=== PATIENT | male | born 1950 | race Caucasian/White ===

== ENCOUNTER → 2016-09-14 | Outpatient (CLI) | payer MEDICARE, BC ==
--- NOTE | 2016-09-14 14:09 | CT ---
EXAM DESCRIPTION: Abdomen/Pelvis w/wo Contrast CLINICAL HISTORY: ABD PAIN COMPARISON: None Available TECHNIQUE: CT of the abdomen and Pelvis was performed with and without IV contrast. This exam was performed according to our departmental dose-optimization program, which includes automated exposure control, adjustment of the mA and/or kV according to patient size and/or use of iterative reconstruction technique. FINDINGS: Pre-IV contrast images show no lung base abnormality. There is no calcified gallstone. There is a punctate nonobstructing right renal calculus. Following IV contrast demonstration, no abdominal aortic aneurysm or dissection is seen. Incidentally noted is a retroaortic left renal vein. There are a few subthreshold retroperitoneal lymph nodes, but no retroperitoneal or mesenteric adenopathy is seen. The liver, pancreas and adrenals are unremarkable. There are 1 or 2 round low density lesions in both kidneys, the largest a 3.2 cm cyst inferiorly in the left kidney. Otherwise, these are too small to accurately characterize but probably represent cysts. The kidneys are otherwise unremarkable. There are innumerable tiny round low density splenic lesions, nonspecific and too small to characterize. The spleen is not enlarged. No pneumoperitoneum or ascites. No dilated small bowel loops. No bladder wall thickening. The prostate is not enlarged. No colonic wall thickening or pericolonic inflammation. Normal appendix. There are mild degenerative changes in the lumbar spine at several levels. IMPRESSION: Innumerable tiny round low density splenic lesions without splenomegaly, nonspecific. Differential considerations include multiple developmental cysts or small lymphangiomas. No splenomegaly, and infection or neoplasm are less likely considerations. No adenopathy or other abnormality in the abdomen or pelvis to explain patient symptoms. Incidentally noted bilateral renal cysts. Electronically signed by: Rico Ness MD 09/14/2016 2:09 PM CDT Workstation: -[id number]
== END | disposition home or self-care (01) ==
LOC: CT 13:17
PROVIDERS: ATTEND General Practice
DX: N28.1 Cyst of kidney, acquired (principal); R10.9 Unspecified abdominal pain

== ENCOUNTER 2019-12-16 15:56 | Emergency (ER) | payer MEDICARE, BC ==
[2019-12-16] MEDS ORDERED: KETOROLAC TROMETHAMINE INJ 30 MG/ML VIAL IV ONE (16:15)
[2019-12-16] MEDS ORDERED: SODIUM CHLORIDE 0.9% 1000ML 1,000 ML IVS ONE (16:15)
[2019-12-16] MEDS ORDERED: SODIUM CHLORIDE 0.9% (FLUSH) 10 ML SYG IV PRN (16:15)
[2019-12-16] MEDS ORDERED: LIDOCAINE 2% 100 MG/5 ML SYG IV ONE (16:16)
--- NOTE | 2019-12-16 16:55 | CT ---
EXAM: CT Abdomen and Pelvis Without Intravenous Contrast CLINICAL HISTORY: The patient is 69 years old and is Male; right flank pain. TECHNIQUE: Axial computed tomography images of the abdomen and pelvis without intravenous contrast. Sagittal and coronal reformatted images were created and reviewed. This CT exam was performed using one or more of the following dose reduction techniques: automated exposure control, adjustment of the mA and/or kV according to patient size, and/or use of iterative reconstruction technique. COMPARISON: September 14, 2016 FINDINGS: Lung bases: Unremarkable. No mass. No consolidation. ABDOMEN: Liver: Unremarkable. Gallbladder and bile ducts: Unremarkable. No calcified stones. No ductal dilation. Pancreas: Unremarkable. No ductal dilation. Spleen: Unremarkable. No splenomegaly. Adrenals: Unremarkable. No mass. Kidneys and ureters: 4 mm calculus of the right ureterovesicular junction resulting mild right hydroureteronephrosis. 3.5 cm left renal cyst Stomach and bowel: Unremarkable. No obstruction. No mucosal thickening. PELVIS: Appendix: No findings to suggest acute appendicitis. Bladder: Unremarkable. No stones. Reproductive: Unremarkable as visualized. ABDOMEN and PELVIS: Intraperitoneal space: Unremarkable. No free air. No significant fluid collection. Bones/joints: No acute fracture. No dislocation. Soft tissues: Unremarkable. Vasculature: Unremarkable. No abdominal aortic aneurysm. Lymph nodes: Unremarkable. No enlarged lymph nodes. IMPRESSION: 4 mm calculus of the right ureterovesicular junction resulting mild right hydroureteronephrosis. Electronically signed by: Tin Brush MD 12/16/2019 4:54 PM CDT
[2019-12-16] MEDS ORDERED: HYDROcodone 5MG/APAP 325MG 1 EA TAB PO ONE (17:07)
[2019-12-16] MEDS ORDERED: ONDANSETRON INJ 4 MG/2 ML VIAL IV ONE (17:07)
--- NOTE | 2019-12-16 17:10 | ED.PDOC ---
History of Present Illness - General Chief Complaint: Abdominal Pain Stated Complaint: R flank/abdominal pain Time Seen by Provider: 12/16/19 16:15 Source: patient, RN notes reviewed, Vital Signs reviewed Exam Limitations: no limitations - History of Present Illness Timing/Duration: 1-3 hours Severity: severe Improving Factors: nothing Worsening Factors: nothing Associated Symptoms: nausea/vomiting - nausea only Allergies/Adverse Reactions: Allergies NO KNOWN ALLERGY Allergy (Verified 12/16/19 16:20) Home Medications: Ambulatory Orders Acetaminophen W/ Codeine [Tylenol W/ CODEINE #3] 1 tablet PO Q4H #20 ea 12/16/19 Ondansetron [Ondansetron Odt] 4 mg PO Q6H #12 tab 12/16/19 Review of Systems - Review of Systems Constitutional: States: no symptoms reported, see HPI. Denies: chills, fever, malaise, weakness EENTM: States: no symptoms reported. Denies: eye pain, blurred vision, double vision Respiratory: States: no symptoms reported. Denies: cough, short of breath, stridor Cardiology: States: no symptoms reported. Denies: chest pain, palpitations, syncope Gastrointestinal/Abdominal: States: see HPI, abdominal pain, nausea, other - right flank pain. Denies: diarrhea Genitourinary: States: no symptoms reported. Denies: dysuria, frequency, hematuria Musculoskeletal: States: see HPI, back pain Skin: States: no symptoms reported. Denies: change in color, rash Neurological: States: no symptoms reported. Denies: headache, tingling, we akness Endocrine: States: no symptoms reported. Denies: intolerance to cold, intolerance to heat, increased hunger, increased thirst, increased urine Hematologic/Lymphatic: States: no symptoms reported. Denies: anemia, easy bleeding All other Systems: Reviewed and Negative Past Medical History (General) - Patient Medical History Hx Stroke: No Hx of COPD: No Hx Cardiac Disorders: No Hx Hypertension: No Hx Diabetes: No Hx Cancer: No Surgical History: no surgical history - Vaccination History Hx Influenza Vaccination: Yes Hx Pneumococcal Vaccination: No Immunizations Up to Date: No - Social History Hx Tobacco Use: No Hx Alcohol Use: Yes Hx Substance Use: No Hx Substance Use Treatment: No Hx Depression: No - Female History Patient is a Female of Child Bearing Age (10 -59 yrs old): No Patient : No Family Medical History - Family History Mother Family History: Unknown Physical Exam - Physical Exam General Appearance: Alert, Anxious, Obvious distress, Well Developed, Well Groomed, Well Hydrated, Well Nourished Eye Exam: bilateral normal Ears, Nose, Throat: hearing grossly normal, normal ENT inspection, normal pharynx Neck: non-tender, full range of motion, supple, normal inspection Respiratory: chest non-tender, lungs clear, normal breath sounds, no respiratory distress, no accessory muscle use Cardiovascular/Chest: normal peripheral pulses, regular rate, rhythm, no edema, no gallop, no JVD, no murmur Gastrointestinal/Abdominal: normal bowel sounds, non tender, soft Back Exam: no vertebral tenderness, CVA tenderness (R) Extremity: normal range of motion, non-tender, normal inspection Neurologic: city sanitarian II-XII nml as tested, no motor/sensory deficits, alert, normal mood/affect, oriented x 3 Skin Exam: normal color, warm/dry Lymphatic: no adenopathy Progress - Progress Progress: Differential diagnosis: UTI, pyelonephritis, kidney stone, bowel obstruction among others. 12/16/19 18:39 Patient's pain is completely resolved after medications. I suspect he may have also passed a stone. Patient is afebrile and denies any type of urinary symptoms, therefore, I will not insist on a urinalysis prior to discharge. Patient has been prescribed pain medication. We will plan discharge home with follow-up with PCP for referral to urology. I have discussed this plan of care with the patient and his and they voiced understanding and agreement. Kj Godfrey M.D. #[id number] - Results/Orders Results/Orders: EXAM: CT Abdomen and Pelvis Without Intravenous Contrast CLINICAL HISTORY: The patient is 69 years old and is Male; right flank pain. TECHNIQUE: Axial computed tomography images of the abdomen and pelvis without intravenous contrast. Sagittal and coronal reformatted images were created and reviewed. This CT exam was performed using one or more of the following dose reduction techniques: automated exposure control, adjustment of the mA and/or kV according to patient size, and/or use of iterative reconstruction technique. COMPARISON: September 14, 2016 FINDINGS: Lung bases: Unremarkable. No mass. No consolidation. ABDOMEN: Liver: Unremarkable. Gallbladder and bile ducts: Unremarkable. No calcified stones. No ductal dilation. Pancreas: Unremarkable. No ductal dilation. Spleen: Unremarkable. No splenomegaly. Adrenals: Unremarkable. No mass. Kidneys and ureters: 4 mm calculus of the right ureterovesicular junction resulting mild right hydroureteronephrosis. 3.5 cm left renal cyst Stomach and bowel: Unremarkable. No obstruction. No mucosal thickening. PELVIS: Appendix: No findings to suggest acute appendicitis. Bladder: Unremarkable. No stones. Reproductive: Unremarkable as visualized. ABDOMEN and PELVIS: Intraperitoneal space: Unremarkable. No free air. No significant fluid collection. Bones/joints: No acute fracture. No dislocation. Soft tissues: Unremarkable. Vasculature: Unremarkable. No abdominal aortic aneurysm. Lymph nodes: Unremarkable. No enlarged lymph nodes. IMPRESSION: 4 mm calculus of the right ureterovesicular junction resulting mild right hydroureteronephrosis. Electronically signed by: Tin Brush MD 12/16/2019 4:54 PM 12/16/19 16:15 Sodium Chloride 0.9% (Flush) [Saline Flush Syringe] 10 ml IV PRN PRN EKG STAT URINALYSIS Stat 12/17/19 16:15 EKG STAT Laboratory Results - last 24 hr 12/16/19 12/16/19 12/16/19 16:22 16:22 16:22 WBC 6.0 RBC 4.62 L Hgb 14.5 Hct 41.0 L MCV 88.9 MCH 31.5 H MCHC 35.4 RDW 12.8 Plt Count 123 L MPV 8.8 Absolute Neuts (auto) 3.40 Absolute Lymphs (auto) 1.60 Absolute Monos (auto) 0.70 Absolute Eos (auto) 0.20 Absolute Basos (auto) 0.10 Neutrophils % 58.0 Lymphocytes % 27.0 Monocytes % 10.9 H Eosinophils % 3.1 Basophils % 1.0 Sodium 138 Potassium 3.3 L Chloride 103 Carbon Dioxide 26 Anion Gap 12.3 BUN 21 H Creatinine 1.39 H BUN/Creatinine Ratio 15.1 Random Glucose 165 H Serum Osmolality 282.3 Calcium 8.7 Total Bilirubin 2.3 H* Direct Bilirubin 0.2 Indirect Bilirubin 2.1 H AST 18 ALT 15 Alkaline Phosphatase 72 Serum Total Protein 7.2 Albumin 4.3 Lipase 45 EKG performed on 16 December 2019 at 1605 hrs.: Normal sinus rhythm at 61 bpm, minimal voltage criteria for LVH, borderline EKG. No comparison EKG available at this time. Departure - Departure Clinical Impression: Ureterolithiasis Time of Disposition: 18:41 Disposition: Discharge to Home or Self Care Condition: Good Departure Forms: ED Discharge - Pt. Copy, Patient Portal Self Enrollment Instructions: DI for Abdominal Pain-Adult Diet: resume usual diet Activity: increase activity as tolerated Referrals: To Guillen MD [Primary Care Provider] - 1-5 Days Prescriptions: Ondansetron [Ondansetron Odt] 4 mg PO Q6H #12 tab Acetaminophen W/ Codeine [Tylenol W/ CODEINE #3] 1 tablet PO Q4H #20 ea Home Medications: Ambulatory Orders Acetaminophen W/ Codeine [Tylenol W/ CODEINE #3] 1 tablet PO Q4H #20 ea 12/16/19 Ondansetron [Ondansetron Odt] 4 mg PO Q6H #12 tab 12/16/19
[2019-12-16 19:01] VITALS: BP 143/70; TEMP 97.8; O2SAT 95
== END 2019-12-16 19:01 | disposition home or self-care (01) ==
LOC: ER 15:56
DX: N13.2 Hydronephrosis with renal and ureteral calculous obstruction (principal)
CPT/HCPCS: 36415; 74176; 80048; 80076; 83690; 85025; 93005; J1885; J2405; J7030